=== PATIENT | female | born 1955 | race Caucasian/White ===

== ENCOUNTER 2017-02-17 16:13 | Emergency (ER) | payer OTHER ==
[~2017-02-17] VITALS: Wt 75.5 kg
[~2017-02-17 16:13] MED LIST: ALPR0.254 PO; ATOR40TA68 PO; CHOL100062 PO; DOCU100C26 PO; HYDR-3011 PO; INVOKAMET PO; LEVO150T67 PO; LINA290C PO; LORA10CA PO; MECL12.5 PO; SERT50TA PO; ZOLP10TA PO
[2017-02-17] MEDS ORDERED: SODIUM CHLORIDE 0.9% 1L BAG IV* STA (18:54)
[2017-02-17] MEDS ORDERED: ACETAMINOPHEN 325 MG TAB PO ONE (19:00)
--- NOTE | 2017-02-17 19:05 | ERA ---
ER Documentation Chief Complaint Date/Time DATE: 02/17/17 TIME: 18:58 Chief Complaint HEADACHE, NAUSEA, FEVER X 4 DAYS HPI This is a 62-year-old female with a past medical history of hypothyroidism, hyperlipidemia, constipation, sleep disturbance, depression, anxiety who is presenting with a productive cough of yellow sputum, mild shortness of breath, fatigue, fever, chills, nausea and a headache for 4 days. The patient is felt more run down recently. She is also felt mildly lightheaded, but this comes and goes. She has never felt like she is truly going to pass out. She has never been at risk of falling. She denies neck stiffness, but she does endorse myalgias generally. She denies chest pain but does indicate that she has some chest discomfort with coughing. She denies abdominal pain. She has had no changes to bowel movements urination. She has had no episodes of confusion. She has had no focal deficits. ROS All systems reviewed and are negative except as per history of present illness. Medications Home Meds Active Scripts Levofloxacin* (Levaquin*) 750 Mg Tablet, 750 MG PO DAILY for 7 Days, TAB Prov:GROVER CM MD 02/17/17 Reported Medications Ibuprofen* (Ibuprofen*) 600 Mg Tablet, 600 MG PO QID Y for PAIN, TAB 02/17/17 Pentoxifylline* (Pentoxifylline*) 400 Mg Tablet.sa, 400 MG PO DAILY, TAB 02/17/17 Meloxicam* (Meloxicam*) 7.5 Mg Tablet, 7.5 MG PO DAILY, #30 TAB 02/17/17 Levothyroxine Sodium* (Levothyroxine Sodium*) 175 Mcg Tablet, 175 MCG PO BEFORE BREAKFAST, #30 TAB 02/17/17 Canagliflozin/Metformin HCl (Invokamet 150-1,000 mg Tablet) 1 Each Tablet, 1 EACH PO WITH BREAKFAST DINNE, #60 TAB 02/17/17 Atorvastatin* (Atorvastatin*) 40 Mg Tablet, 40 MG PO HS, TAB 10/22/14 Discontinued Reported Medications [Invokamet] 150-1000MG No Conflict Check, 1 PO BID 02/18/15 Zolpidem Tartrate* (Ambien*) 10 Mg Tablet, 10 MG PO HS Y for INSOMNIA, TAB 02/18/15 Docusate Sodium* (Doc-Q-Lace*) 100 Mg Capsule, 100 MG PO Q8 Y for CONSTIPATION, CAP 02/18/15 Levothyroxine Sodium* (Levothyroxine Sodium*) 150 Mcg Tablet, 150 MCG PO AC BREAKFAST, TAB 02/18/15 Hydroxyzine Hcl* (Hydroxyzine Hcl*) 25 Mg Tablet, 25 MG PO DAILY Y for ITCHING, TAB 02/18/15 Alprazolam* (Alprazolam*) 0.25 Mg Tablet, 0.25 MG PO Q8 for ANXIETY for 7 Days, TAB 02/18/15 Sertraline Hcl* (Zoloft*) 50 Mg Tablet, 50 MG PO HS, TAB 01/19/15 Cholecalciferol* (Vitamin D3*) 1,000 Unit Tablet, 3000 UNIT PO DAILY, TAB 10/22/14 Loratadine* (Claritin*) 10 Mg Capsule, 10 MG PO QHS, CAP 10/22/14 Linaclotide (LINZESS) 290 Mcg Capsule, 290 MCG PO 07/03/14 Discontinued Scripts Levothyroxine Sodium* (Levothyroxine Sodium*) 150 Mcg Tablet, 150 MCG PO AC BREAKFAST, #90 TAB Prov:PETER NIELSEN MD 02/23/15 Meclizine Hcl* (Meclizine Hcl*) 12.5 Mg Tab, 12.5 MG PO TID for 10 Days, BOT Prov:NEVAEH YUSUF MD 02/20/15 Allergies Allergies: Coded Allergies: No Known Allergy (Unverified , 02/17/17) PMhx/Soc History of Surgery: Yes (Thyroid) Anesthesia Reaction: No Hx Neurological Disorder: No Hx Respiratory Disorders: No Hx Cardiac Disorders: Yes (chol) Hx Psychiatric Problems: No Hx Miscellaneous Medical Probl: Yes (DM) Hx Alcohol Use: No Hx Substance Use: No Hx Tobacco Use: No Smoking Status: Never smoker FmHx Family History: No diabetes Physical Exam Vitals Vital Signs Date Time Temp Pulse Resp B/P Pulse Ox O2 Delivery O2 Flow Rate FiO2 02/17/17 21:00 98.4 87 16 113/58 97 Room Air 02/17/17 18:55 99.1 90 20 95/41 96 Room Air 02/17/17 16:21 100.9 104 18 127/68 99 Physical Exam Const: NAD, Well developed, Well nourished Head: Atraumatic Eyes: Normal Conjunctiva ENT: Normal External Ears, Nose and Mouth. Neck: Full range of motion..~ No meningismus. Resp: Coarse breath sounds, dullness on the left. Cardio: Regular rhythm, no murmurs. tachycardia Abd: Soft, non tender, non distended. Normal bowel sounds Skin: No petechiae or rashes Back: No midline or flank tenderness Ext: No cyanosis, or edema Neur: Awake and alert, Normal sensation, Normal strength Psych: Normal Mood and Affect Result Diagram: 02/17/17191402/17/171914 Results 24 hrs Laboratory Tests Test 02/17/17 19:15 02/17/17 20:51 White Blood Count 12.010^3/ul Red Blood Count 4.7010^6/ul Hemoglobin 13.2g/dl Hematocrit 40.8% Mean Corpuscular Volume 86.8fl Mean Corpuscular Hemoglobin 28.1pg Mean Corpuscular Hemoglobin Concent 32.4g/dl Red Cell Distribution Width 13.7% Platelet Count 91154^3/UL Mean Platelet Volume 11.4fl Neutrophils % 81.3% Lymphocytes % 9.4% Monocytes % 8.4% Eosinophils % 0.1% Basophils % 0.4% Nucleated Red Blood Cells % 0.0/100WBC Neutrophils # 9.710^3/ul Lymphocytes # 1.110^3/ul Monocytes # 1.010^3/ul Eosinophils # 0.010^3/ul Basophils # 0.110^3/ul Nucleated Red Blood Cells # 0.010^3/ul Prothrombin Time 14.3Sec Prothrombin Time Ratio 1.1 INR International Normalized Ratio 1.11 Activated Partial Thromboplast Time 30.5Sec Urine Color YELLOW Urine Clarity SLIGHTLY CLOUDY Urine pH 5.0 Urine Specific [place] 1.032 Urine Ketones 1+mg/dL Urine Nitrite NEGATIVEmg/dL Urine Bilirubin NEGATIVEmg/dL Urine Urobilinogen NEGATIVEmg/dL Urine Leukocyte Esterase NEGATIVELeu/ul Urine Microscopic RBC 1/HPF Urine Microscopic WBC 3/HPF Urine Mucus MODERATE/HPF Urine Hemoglobin NEGATIVEmg/dL Urine Glucose 3+mg/dL Urine Total Protein NEGATIVEmg/dl Sodium Level 137mmol/L Potassium Level 4.1mmol/L Chloride Level 102mmol/L Carbon Dioxide Level 22mmol/L Anion Gap 17 Blood Urea Nitrogen 20mg/dl Creatinine 0.81mg/dl Glucose Level 105mg/dl Lactic Acid Level 1.1mmol/L 0.8mmol/L Calcium Level 9.1mg/dl Total Bilirubin 0.4mg/dl Direct Bilirubin 0.00mg/dl Indirect Bilirubin 0.4mg/dl Aspartate Amino Transf (AST/SGOT) 29IU/L Alanine Aminotransferase (ALT/SGPT) 36IU/L Alkaline Phosphatase 109IU/L Troponin I < 0.012ng/ml Total Protein 8.5g/dl Albumin 4.5g/dl Globulin 4.00g/dl Albumin/Globulin Ratio 1.12 Current Medications Medications (Trade) Dose Ordered Sig/Manoj Route PRN Reason Start Time Stop Time Status Last Admin Dose Admin Sodium Chloride (NS) 2,340 ml BOLUS OVER 2 HOURS STAT IV* 02/17/17 18:54 02/17/17 18:56 DC 02/17/17 19:21 Acetaminophen (Tylenol Tab) 650 mg ONCE ONCE PO 02/17/17 19:00 02/17/17 19:01 DC 02/17/17 19:22 Levofloxacin (Levaquin) 750 mg ONCE ONCE PO 02/17/17 21:30 02/17/17 21:31 DC 02/17/17 21:46 Procedures/MDM MDM Patient's presentation warrants further investigation. The patient has symptoms consistent with an infectious etiology, such as pneumonia. A full infectious workup will be performed. The patient is febrile and tachycardic, but her blood pressure is stable. Lactic acid will be sent off and the patient will receive 30 cc/kg of IV fluids for resuscitative purposes. However, my suspicion for sepsis is low. LABS The patient's blood work was obtained and reviewed. The patient seemed shows leukocytosis with left shift. The patient is febrile, and I do suspect an infectious etiology. The patient is not anemic today. The patient's platelet count is unremarkable. The patient's CMP shows no signs of metabolic or electrolyte abnormality. The patient has normal renal and hepatic function testing. The patient's lactic acid was within normal limits 2. EKG EKG read by me: Rate/Rhythm: Regular rate and rhythm at a rate of 89 Intervals: Normal [place]: Normal Impression: No evidence of ischemia or arrhythmia IMAGING CXR IMPRESSION: Mild left basilar atelectasis or pneumonia. Atherosclerosis. Otherwise normal chest radiograph. Electronically viewed and signed by .Michael Ocasio MD, on 02/17/2017 20:22 TREATMENT/DISPOSITION Given the findings on the chest x-ray, I am concerned about pneumonia. The patient was initially febrile and tachycardic. However, after IV fluids and Tylenol, both of these vital signs resolved completely. The patient also felt much better. The patient will be given a dose of Levaquin in the emergency department. The patient's lactic acid was normal, and I do not suspect sepsis at this time. The patient will be sent home with a prescription for Levaquin. She will be given precautions with which to return to the emergency department. She needs follow-up with her doctor in 1-3 days for reevaluation. The patient stable for discharge. Departure Diagnosis: Primary Impression: Fever Qualified Code: R50.9 - Fever, unspecified fever cause Additional Impressions: Leukocytosis Qualified Code: D72.820 - Lymphocytosis Pneumonia Qualified Code: J18.9 - Pneumonia of left lung due to infectious organism, unspecified part of lung Condition: Stable GROVER CM MD Feb 17, 2017 19:05
[2017-02-17] MEDS ORDERED: CANA1TAB4 PO (19:25)
[2017-02-17] MEDS ORDERED: LEVO175T6 PO (19:26)
[2017-02-17] MEDS ORDERED: MELO-216 PO (19:26)
[2017-02-17] MEDS ORDERED: PENT400T2 PO (19:27)
[2017-02-17] MEDS ORDERED: IBUP-1542 PO (19:27)
[2017-02-17 19:28] LABS: BASOPHIL # 0.1 10^3/ul (0.0-0.1); BASOPHILS % 0.4 % (0.0-2.0); EOSINOPHILS % 0.1 % (0.0-7.0); HEMATOCRIT 40.8 % (37.0-47.0); HEMOGLOBIN 13.2 g/dl (12.0-16.0); LYMPHOCYTES # 1.1 10^3/ul (0.8-2.9); LYMPHOCYTES % 9.4 % (15.0-51.0); MEAN CORPUSCULAR HEMOGLOBIN 28.1 pg (29.0-33.0); MEAN CORPUSCULAR HGB CONC 32.4 g/dl (32.0-37.0); MEAN CORPUSCULAR VOLUME 86.8 fl (82.0-101.0); MEAN PLATELET VOLUME 11.4 fl (7.4-10.4); MONOCYTES % 8.4 % (0.0-11.0); NEUTROPHIL # 9.7 10^3/ul (1.6-7.5); NEUTROPHILS % 81.3 % (39.0-77.0); PLATELET COUNT 240 10^3/UL (140-415); RED CELL DISTRIBUTION WIDTH 13.7 % (11.5-14.5)
[2017-02-17 19:36] LABS: ADD UMIC NO; UR ASCORBIC ACID NEGATIVE (NEGATIVE); UR BILIRUBIN (Dip) NEGATIVE (NEGATIVE); UR BLOOD (Dip) NEGATIVE (NEGATIVE); UR CLARITY SLIGHTLY CLOUDY (CLEAR); UR COLOR YELLOW (YELLOW); UR GLUCOSE (Dip) 3+ mg/dL (NEGATIVE); UR KETONES (Dip) 1+ mg/dL (NEGATIVE); UR LEUKOCYTE ESTERASE (Dip) NEGATIVE Leu/ul (NEGATIVE); UR MUCUS MODERATE /HPF (NONE SEEN); UR NITRITE (Dip) NEGATIVE (NEGATIVE); UR RBC 1 /HPF (0-5); UR SPECIFIC GRAVITY (Dip) 1.032 (1.003-1.030); UR TOTAL PROTEIN (Dip) NEGATIVE (NEGATIVE); UR UROBILINOGEN (Dip) NEGATIVE (NEGATIVE)
[2017-02-17 19:46] LABS: INR 1.11; PROTIME 14.3 Sec (12.2-14.2); PT RATIO 1.1
[2017-02-17 19:47] LABS: PARTIAL THROMBOPLASTIN TIME 30.5 Sec (25.0-35.0)
[2017-02-17 20:02] LABS: ALANINE AMINOTRANSFERASE 36 IU/L (13-69); ALBUMIN 4.5 g/dl (3.3-4.9); ALBUMIN/GLOBULIN RATIO 1.12; ALKALINE PHOSPHATASE 109 IU/L (42-121); ANION GAP 17 (8-16); ASPARTATE AMINO TRANSFERASE 29 IU/L (15-46); BILIRUBIN,INDIRECT 0.4 mg/dl (0-1.1); BILIRUBIN,TOTAL 0.4 mg/dl (0.2-1.3); BLOOD UREA NITROGEN 20 mg/dl (7-20); CALCIUM 9.1 mg/dl (8.4-10.2); CARBON DIOXIDE 22 mmol/L (21-31); CHLORIDE 102 mmol/L (97-110); CREATININE 0.81 mg/dl (0.44-1.00); GLUCOSE 105 mg/dl (70-220); POTASSIUM 4.1 mmol/L (3.5-5.1); SODIUM 137 mmol/L (135-144); TOTAL PROTEIN 8.5 g/dl (6.1-8.1)
[2017-02-17 20:19] LABS: TROPONIN-I < 0.012 ng/ml (0.00-0.12)
--- NOTE | 2017-02-17 20:22 | RADRPT ---
PROCEDURE: XR Chest. CLINICAL INDICATION: Cough. Sepsis. TECHNIQUE: Single frontal view. COMPARISON: 02/18/2015. FINDINGS: There is mild left basilar air space disease consistent with atelectasis or pneumonia. The lungs are otherwise clear. The heart size is normal. There is calcification in the aorta consistent with atherosclerosis. There is no pleural effusion. There is no pneumothorax. IMPRESSION: 1. Mild left basilar atelectasis or pneumonia. 2. Atherosclerosis. 3. Otherwise normal chest radiograph. RPTAT: QQ .Michael Ocasio MD, MD Date Time Electronically viewed and signed by .Michael Ocasio MD, MD on 02/17/2017 20:22 .R/
[2017-02-17 21:00] VITALS: BP 113/58; PULSE 87; RESP 16; TEMP 98.4
[2017-02-17] MEDS ORDERED: LEVOFLOXACIN 750 MG TABLET PO ONE (21:30)
[2017-02-17] MEDS ORDERED: LEVO750T25 PO (21:30)
== END 2017-02-17 21:50 | disposition home or self-care (01) ==
LOC: E/R 16:13
DX: D72.820 Lymphocytosis (symptomatic) (principal); J18.9 Pneumonia, unspecified organism; E03.9 Hypothyroidism, unspecified; E11.9 Type 2 diabetes mellitus without complications; R07.9 Chest pain, unspecified; Z79.84 Long term (current) use of oral hypoglycemic drugs
CPT/HCPCS: 36415; 71010; 80053; 81001; 83605; 84484; 85025; 85610; 85730; 87040; 87086; J7030; Z7502; Z7610; 81003; 93005

== ENCOUNTER 2017-08-15 19:13 | Emergency (ER) | END 2017-08-16 02:50 | disposition home or self-care (01) ==

== ENCOUNTER 2017-11-05 08:33 | Emergency (ER) | END 2017-11-05 10:09 | disposition home or self-care (01) ==

== ENCOUNTER 2018-11-07 09:48 | Inpatient (IN) | payer OTHER ==
[2018-11-07] VITALS (26 sets, daily range): BP systolic 101–127; BP diastolic 53–73; PULSE 74–108; RESP 11–20; Ht 149.9 cm; Wt 77.3 kg
[~2018-11-07] VITALS: Ht 149.9 cm; Wt 77.3 kg
[~2018-11-07 09:48] MED LIST changes: -ALPR0.254 PO; +CEFAZOLIN 2 GM/50 ML (PMX) 50 ML IVPB SCH; -CHOL100062 PO; -DOCU100C26 PO; -HYDR-3011 PO; -INVOKAMET PO; +LACTATED RINGER'S 1,000 ML IV SCH; -LEVO150T67 PO; -LINA290C PO; -LORA10CA PO; -MECL12.5 PO; -SERT50TA PO; -ZOLP10TA PO
[2018-11-07] MEDS ORDERED: NABU-83 PO (10:52)
[2018-11-07] MEDS ORDERED: TIZA4CAP PO (10:52)
[2018-11-07] MEDS ORDERED: LEVO125T7 PO (10:52)
[2018-11-07] MEDS ORDERED: PROP10TA6 PO (10:52)
[2018-11-07] MEDS ORDERED: GABA100C14 PO (10:52)
[2018-11-07] MEDS ORDERED: PARO10TA76 PO (10:52)
[2018-11-07] MEDS ORDERED: HYDR25CA98 PO (10:52)
[2018-11-07] MEDS ORDERED: CITA20TA11 PO (10:52)
[2018-11-07] MEDS ORDERED: CANA1TAB4 PO (10:52)
[2018-11-07] MEDS ORDERED: POLYMYXIN/BACITRACIN 1L IRRIG ONE (11:36)
--- NOTE | 2018-11-07 12:03 | PREAC ---
Date/Time of Note Date/Time of Note DATE: 11/07/18 TIME: 12:00 Anesthesia Eval and Record Evaluation Time Pre-Procedure Interview DATE: 11/07/18 TIME: 12:00 Age 63 Sex female NPO: 8 hrs Preoperative diagnosis Cervical Spine Stenosis Planned procedure Anterior Cervical C5-6 Disectomy and Fusion Past Medical History Past Medical History: Includes Endo: Diabetes, Hypothyroid Surgery & Anesthesia Issues No known issue Meds Anticoagulation: No Beta Angeline within 24 hr: Yes Reported Medications Tizanidine Hcl* (Zanaflex*) 4 Mg Capsule, 4 MG PO Q6H PRN for SPASTICITY, CAP 11/07/18 Propranolol Hcl* (Propranolol Hcl*) 10 Mg Tablet, 10 MG PO BID, TAB 11/07/18 Paroxetine Hcl* (Paroxetine*) 10 Mg Tablet, 10 MG PO DAILY, TAB 11/07/18 Nabumetone* (Nabumetone*) 750 Mg Tablet, 750 MG PO DAILY, TAB 11/07/18 Levothyroxine Sodium* (Levothyroxine Sodium*) 125 Mcg Tablet, 125 MCG PO BEFORE BREAKFAST, #30 TAB 11/07/18 Canagliflozin/Metformin HCl (Invokamet 150-1,000 mg Tablet) 1 Each Tablet, 1 TAB PO WITH BREAKFAST DINNE, #60 TAB 11/07/18 Hydroxyzine Pamoate* (Hydroxyzine Pamoate*) 25 Mg Capsule, 25 MG PO BID PRN for ALLERGIC REACTION, #30 CAP 11/07/18 Gabapentin* (Gabapentin*) 100 Mg Capsule, 100 MG PO TID, #90 CAP 11/07/18 Citalopram Hydrobromide* (Celexa*) 20 Mg Tablet, 30 MG PO DAILY, #30 TAB 11/07/18 Atorvastatin* (Atorvastatin*) 40 Mg Tablet, 40 MG PO HS, TAB 10/22/14 Discontinued Reported Medications Ibuprofen* (Ibuprofen*) 600 Mg Tablet, 600 MG PO QID PRN for PAIN, TAB 02/17/17 Pentoxifylline* (Pentoxifylline*) 400 Mg Tablet.sa, 400 MG PO DAILY, TAB 02/17/17 Meloxicam* (Meloxicam*) 7.5 Mg Tablet, 7.5 MG PO DAILY, #30 TAB 02/17/17 Levothyroxine Sodium* (Levothyroxine Sodium*) 175 Mcg Tablet, 175 MCG PO BEFORE BREAKFAST, #30 TAB 02/17/17 Canagliflozin/Metformin HCl (Invokamet 150-1,000 mg Tablet) 1 Each Tablet, 1 EACH PO WITH BREAKFAST DINNE, #60 TAB 02/17/17 Discontinued Scripts Ibuprofen* (Motrin*) 600 Mg Tab, 600 MG PO Q6, #30 TAB Prov:LATRICE ADAIR PA-C 11/05/17 Ondansetron (Ondansetron Odt) 4 Mg Tab.rapdis, 4 MG PO Q6H PRN for NAUSEA AND/OR VOMITING, #10 TAB Prov:XIOMARA GUTIERREZ S. 08/16/17 Tramadol HCl (Tramadol HCl) 50 Mg Tablet, 50 MG PO Q4 PRN for PAIN, #20 TAB Prov:XIOMARA GUTIERREZ S. 08/16/17 Ciprofloxacin Hcl* (Ciprofloxacin Hcl*) 500 Mg Tablet, 500 MG PO BID for 7 Days, TAB Prov:XIOMARA GUTIERREZ S. 08/16/17 Levofloxacin* (Levaquin*) 750 Mg Tablet, 750 MG PO DAILY for 7 Days, TAB Prov:GROVER CM MD 02/17/17 Current Medications Lactated Ringer's 1,000 ml @ 25 mls/hr Q24H IV ; Start 11/07/18 at 06:00; Stop 11/07/18 at 17:00 Cefazolin Sodium/ Dextrose 50 ml @ 100 mls/hr PRE-OP IVPB ; Start 11/07/18 at 06:00; Stop 11/07/18 at 17:00 Meds reviewed: Yes Allergies Coded Allergies: No Known Allergy (Unverified , 11/07/18) Allergies Reviewed: Yes Labs/Studies Labs Reviewed: Reviewed by anesthesiologist Blood Bank Test 11/07/18 10:34 Antibody Screen NEGATIVE Blood Type B POSITIVE test: N/A Studies: ECG (n/a), CXR (n/a) Pre-procedure Exam Last vitals Vital Signs Date Temp Pulse Resp B/P (MAP) Pulse Ox O2 O2 Flow FiO2 Time Delivery Rate 11/07/18 97.4 74 16 118/73 97 Room Air 11:11 (88) Airway: Adequate mouth opening, Adequate thyromental dist Mallampati: Mallampati II Teeth: Normal Lung: Normal Heart: Normal ASA Physical Status ASA physical status: 2 Emergency: None Planned Anesthetic General/MAC: ETT, A Line Planned Pain Management Parenteral pain med Pre-operative Attestations Prior to commencing anesthesia and surgery, the patient was re-evaluated, there was verification of: *The patient's identity *The results of appropriate recent lab work and preoperative vital signs *The above evaluation not changing prior to induction *Anesthetic plan, risk benefits, alternative and complications discussed with patient/family; questions answered; patient/family understands, accepts and wishes to proceed. JULIO CÉSAR STAUFFER MD Nov 07, 2018 12:03
[2018-11-07] MEDS ORDERED: THROMBIN 5000 UNIT VIAL ONE (12:05)
[2018-11-07] MEDS ORDERED: FENTAnyl 50 MCG/ML VIAL ONE (12:07)
[2018-11-07] MEDS ORDERED: ROCURONIUM 50 MG INJ ONE (12:07)
[2018-11-07] MEDS ORDERED: CEFAZOLIN 1 GM INJ ONE (12:07)
[2018-11-07] MEDS ORDERED: PROPOFOL 20 ML ONE (12:07)
[2018-11-07] MEDS ORDERED: MIDAZOLAM 1 MG/ML 2 ML INJ ONE (12:07)
--- NOTE | 2018-11-07 12:20 | HPN ---
Date/Time of Note Date/Time of Note DATE: 11/07/18 TIME: 12:20 Interval H&P Admission Note Pt. seen H&P reviewed: No system changes ELENA BRADLEY MD Nov 07, 2018 12:20
[2018-11-07] MEDS ORDERED: LIDOCAINE 1%/EPI 30 ML INJ ONE (12:30)
--- NOTE | 2018-11-07 12:44 | PREOPHP ---
DATE OF ADMISSION: 11/07/2018 HISTORY OF PRESENT ILLNESS: The patient is a 63-year-old right-handed female with a history of chronic low back pain as well as left upper extremity pain, numbness and tingling. The patient was found to have hyperreflexia on examination and has had progressive neck pain. MRI showed degenerative disk disease and stenosis, foraminal stenosis on the left at C5-C6. The patient denies any fevers, chills, or weight loss. Denies any bowel or bladder incontinence. PAST MEDICAL HISTORY: Significant for hypothyroidism, high blood pressure, chronic low back pain, and cervical myelopathy. PAST SURGICAL HISTORY: Significant for appendicitis. FAMILY HISTORY: No reported history of inherited bleeding disorder. SOCIAL HISTORY: The patient is nonsmoker, nondrinker. ALLERGIES: NO KNOWN DRUG ALLERGIES. REVIEW OF SYSTEMS: 12- point review: pertinent positive and negatives in HPI and below: Constitution: Denies fever or chills. Hematologic: Denies easy bruising or bleeding. MEDICATIONS: Include: 1. Atorvastatin 40 mg daily. 2. Celexa 1-1/2 tab daily. 3. Gabapentin 100 mg t.i.d. 4. Hydroxyzine 25 mg. 5. Levothyroxine 150 mcg daily. 6. Paroxetine 10 mg daily. 7. Propranolol 10 mg b.i.d. 8. Zanaflex 4 mg q.i.d. PHYSICAL EXAMINATION: VITAL SIGNS: Temperature 97.4, pulse 74, respirations 16, blood pressure 118/73, saturating 97% on room air. GENERAL: The patient is an obese late middle-aged female lying in the hospital bed in no acute distress. HEAD AND NECK: Normocephalic, atraumatic. She has a mild left [place]urling sign. Her neck is supple. CARDIAC: Regular rate and rhythm. LUNGS: Clear to auscultation. ABDOMEN: Nontender, nondistended, soft. EXTREMITIES: No clubbing, cyanosis, or edema. NEUROLOGIC: Patient is awake, alert, and oriented x3, fluent speech, follows commands readily appropriately. Cranial nerves intact. MOTOR: 5/5 bilateral upper extremities. The patient's deep tendon reflexes were 3+ in her biceps, brachioradialis and triceps and plant. Patellar reflexes were 2+. She does not have a Aki sign or Babinski. Sensation grossly intact. ASSESSMENT AND PLAN: A 64-year-old female with cervical stenosis and myelopathy, lumbar stenosis, lumbago and spondylolisthesis. I went over the patient's signs, symptoms, physical examination, radiographic findings with her in detail in the clinic. I discussed risks, benefits, alternatives of surgical intervention with the patient. The patient elected to proceed with surgery for C5-C6 anterior cervical diskectomy and fusion with a synthetic graft and plate. The patient states that she has declined receiving blood products. I discussed the possibility of should the patient not be able to receive blood products, though I believe the likelihood of transfusion is extremely low for a single level procedure of this nature. The patient expressed understanding and acceptance of this risk of declining blood products. The patient is to be taken to OR for surgery now. Dictated By: ELENA BRADLEY MD, LG/JOHN Conf#: [id number] DID#: [id number] MTDD
[2018-11-07] MEDS ORDERED: ONDANSETRON 4 MG INJ ONE (13:00)
[2018-11-07] MEDS ORDERED: DEXAMETHASONE 4 MG/ML 5 ML INJ ONE (13:00)
[2018-11-07] MEDS ORDERED: METOCLOPRAMIDE 10 MG INJ ONE (13:00)
[2018-11-07] MEDS ORDERED: GELATIN SIZE 100 SPONGE TOP ONE (13:39)
[2018-11-07] MEDS ORDERED: SUGAMMADEX SODIUM 200 MG/2 ML VIAL IV ONE (14:56)
[2018-11-07] MEDS ORDERED: MEPERIDINE 25 MG INJ IV PRN (15:00)
[2018-11-07] MEDS ORDERED: DIPHENHYDRAMINE 50 MG INJ IV PRN (15:00)
[2018-11-07] MEDS ORDERED: FENTAnyl 50 MCG/ML VIAL IV PRN ×3 (15:00)
[2018-11-07] MEDS ORDERED: LABETALOL HCL 20MG INJ IV PRN (15:00)
[2018-11-07] MEDS ORDERED: HYDROmorphONE 1 MG/5 ML IV SYRINGE IV PRN ×3 (15:00)
[2018-11-07] MEDS ORDERED: METOCLOPRAMIDE 10 MG INJ IV PRN (15:00)
[2018-11-07] MEDS ORDERED: ONDANSETRON 4 MG INJ IV PRN ×2 (15:00→15:30)
[2018-11-07] MEDS ORDERED: EPHEDrine 25 MG/5 ML SYG IV PRN (15:00)
[2018-11-07] MEDS ORDERED: OXYCODONE/ACETAMINOPHEN (5/325) TAB PO PRN (15:00)
--- NOTE | 2018-11-07 15:15 | PAC ---
Date/Time of Note Date/Time of Note DATE: 11/07/18 TIME: 15:14 Post-Anesthesia Notes Post-Anesthesia Note Last documented vital signs Vital Signs Date Temp Pulse Resp B/P (MAP) Pulse Ox O2 O2 Flow FiO2 Time Delivery Rate 11/07/18 97.4 74 16 118/73 97 Room Air 15:15 (88) Activity: WNL Respiratory function: WNL Cardiovascular function: WNL Mental status: Baseline Pain reasonably controlled: Yes Hydration appropriate: Yes Nausea/Vomiting absent: Yes JULIO CÉSAR STAUFFER MD Nov 07, 2018 15:15
--- NOTE | 2018-11-07 15:28 | OPR ---
Date/Time of Note Date/Time of Note DATE: 11/07/18 TIME: 15:25 Operative Report Preoperative Diagnosis 1. cervical stenosis with myelopathy 2. cervical spondylosis and degenerative disc disease 3. cervical radiculopathy 4. Chronic neck pain. Postoperative Diagnosis 1. cervical stenosis with myelopathy 2. cervical spondylosis and degenerative disc disease 3. cervical radiculopathy 4. Chronic neck pain. Operation/Procedure Performed 1. C5-6 anterior cervical discectomy and fusion 2. placement of mechanical interbody device, C5-6 interspace. 3. fixation of anterior cervical plate C5-6. 4. use of microscope for intraoperative microdissection. Surgeon see signature line Chief Design Engineer none Anesthesia Type: general Anesthesiologist: JULIO CÉSAR STAUFFER MD Estimated Blood Loss: 0 - 10 ml's Transfusion none Specimen none Grafts/Implants none Tubes/Drains none Complications none Pt Condition Post Procedure: stable Disposition: PACU Procedure Description see dictation ELENA BRADLEY MD Nov 07, 2018 15:28
[2018-11-07] MEDS ORDERED: ZOLPIDEM 5 MG TAB PO PRN (15:30)
[2018-11-07] MEDS ORDERED: DIPHENHYDRAMINE 50 MG CAP PO PRN (15:30)
[2018-11-07] MEDS ORDERED: morphine 1 MG/ML 30 ML (PCA) IV SCH (15:30)
[2018-11-07] MEDS ORDERED: CEPASTAT LOZENGE MT PRN (15:30)
[2018-11-07] MEDS ORDERED: BETHANECHOL 25 MG TAB PO PRN (15:30)
[2018-11-07] MEDS ORDERED: HYDROCODONE/APAP (5/325) TAB PO PRN (15:30)
[2018-11-07] MEDS ORDERED: NALOXONE (0.4 MG/ML) INJ IV PRN (15:30)
[2018-11-07] MEDS ORDERED: DIAZEPAM 5 MG TAB PO PRN (15:30)
[2018-11-07] MEDS ORDERED: AL HYDROX/MG HYDROX/SIMETH 30 ML CUP PO PRN (15:30)
[2018-11-07] MEDS ORDERED: ACETAMINOPHEN 325 MG TAB PO PRN (15:30)
[2018-11-07] MEDS ORDERED: NACL 0.9% 3 ML SYG IV SCH (15:30)
[2018-11-07] MEDS: morphine 1 MG/ML 30 ML (PCA) IV SCH (16:46)
[2018-11-07] MEDS: CEFAZOLIN 1 GM/50 ML (PMX) 50 ML IVPB SCH ×2 (18:06→23:41)
--- NOTE | 2018-11-07 18:23 | OPR ---
DATE OF OPERATION: 11/07/2018 PREOPERATIVE DIAGNOSES: 1. Cervical stenosis with myelopathy. 2. Cervical radiculopathy. 3. Chronic neck pain 4. Cervical degenerative disk disease. POSTOPERATIVE DIAGNOSES: 1. Cervical stenosis with myelopathy. 2. Cervical radiculopathy. 3. Chronic neck pain 4. Cervical degenerative disk disease. PROCEDURES: 1. C5-C6 anterior cervical diskectomy and fusion. 2. Placement of intervertebral mechanical device. 3. Fixation of anterior cervical place, C5-C6. 4. Use of microscope for intraoperative microdissection. SURGEON: Elena Blanc MD BOOK OR SCRIPT EDITOR: None. ANESTHESIOLOGIST: Jose F Rogers MD FINDINGS: Degenerative disk disease and stenosis. SPECIMENS COLLECTED: None. DRAINS PLACED: None. ESTIMATED BLOOD LOSS: 10 mL. COMPLICATIONS: None. DISPOSITION: Recovery. INDICATIONS: The patient is a 63-year-old female with cervical myelopathy and left greater than righ t radiculopathy. The patient has cervical stenosis due to degenerative disease at C5-C6. The risks, benefits, and alternatives of surgical intervention were discussed with the patient who elected for surgery. DESCRIPTION OF PROCEDURE: The patient was brought to the OR. She was sedated, intubated, and anesth esia was successfully induced. Electrophysiologic monitoring was performed and baseline potentials e stablished. The patient was placed in a supine position on the operative table. The neck was slight ly extended. The patient has had a prior thyroidectomy and localization preoperatively. Fluoroscopy showed optimal trajectory for the operation through the prior incision. Sequential compression javier ken were placed. A Moore catheter was placed. Perioperative antibiotics were given. Dr. Rogers al arnel placed an arterial line. The patient was sterilely prepped and draped. After surgical time-out, the procedure commenced. A 15-blade knife was used to make an incision from the midline laterally to the left. ____ Ray- type incision from the midline extending to the left approximately 1 inch. Sharp dissection through the subcutaneous tissue was performed with Metzenbaum scissors and a plane of the fascial tissue was dissected with digital blunt dissection and spreading the Metzenbaum to the prevertebral space. A Ki tner was used to remove this fascia and revealed the longus colli muscle and the anterior longitudina l ligament. A spinal needle was placed. This revealed the disk space corresponding to C5-C6 disk sp teresa. A Bovie electrocautery was used to undermine the longus colli muscles and self-retaining retrac tors were placed. The microscope was then brought in to perform the diskectomy. An 11-blade knife w as used to incise the annulus and the nucleus was removed. Curettes were used to remove the cartilag inous endplate and to remove further disk back to the posterior longitudinal ligament, which was calc ified. A high-speed drill was used to remove some anterior osteophytes and the posterior osteophytes back through the calcified ligament to further longitudinal ligament. [place] rongeurs were then u sed to remove the longitudinal ligament to reveal the epidural space. A high-speed drill and Kerriso n rongeurs were used to remove more bone laterally to perform a foraminotomy. Once a complete diskec maria d had been completed and the cartilaginous endplates removed, a 6 mm trial graft was tapped into p lace and under fluoroscopy showed good depth and alignment. Hence, a PEEK cage filled with DBM was t amponaded into the disk space. [place] pins had been placed to the disk space prior to the diskectomy and the retraction was released after placement of the graft. The [place] pins were removed. A 14 m m anterior cervical plate was then secured to the vertebral bodies of C5 and C6 with 2 screws on and both bones. The locking mechanism was engaged on all screws and final x-rays were performed. The re tractor was removed and the wound was copiously irrigated with bacitracin irrigation and inspected fo r any evidence of bleeding, which there was none. The esophagus and carotid artery were inspected a nd there was no evidence of any violation or injury. Therefore, the incision was then closed with 3- 0 interrupted Vicryl sutures in the platysma and a running 4-0 Monocryl suture. Dermabond was placed . The incision was allowed to dry and a sterile dressing applied. The patient was extubated, taken off the table and taken to recovery after being placed in a hard cervical collar. Sponge, needle and cottonoid count was reported correct at the end the case as well as electrophysiologic monitoring wh ich remains stable. Dictated By: ELENA BLANC MD, LG/JOHN Conf#: [id number] DID#: [id number]
[2018-11-07] MEDS: HYDROCODONE/APAP (5/325) TAB PO PRN (19:18)
[2018-11-07] MEDS ORDERED: TIZANIDINE 4 MG TAB PO PRN (21:30)
[2018-11-07] MEDS ORDERED: hydrOXYzine PAMOATE 25 MG CAP PO PRN (21:30)
[2018-11-08] VITALS (13 sets, daily range): BP systolic 87–131; BP diastolic 52–69; PULSE 56–83; RESP 18–20
[2018-11-08] MEDS ORDERED: EPHEDrine 25 MG/5 ML SYG IV ONE (00:40)
[2018-11-08] MEDS ORDERED: SUCCINYLCHOLINE CHLORIDE 100 MG/5 ML SYG IV ONE (00:40)
[2018-11-08] MEDS: morphine 1 MG/ML 30 ML (PCA) IV SCH (03:20)
[2018-11-08] MEDS: LEVOTHYROXINE 125 MCG TAB PO SCH (06:31)
[2018-11-08] MEDS: CEFAZOLIN 1 GM/50 ML (PMX) 50 ML IVPB SCH ×2 (06:31→12:27)
[2018-11-08] MEDS ORDERED: METFORMIN HCL PO SCH (07:55)
[2018-11-08] MEDS ORDERED: [UNRECOGNIZED DRUG - OTHER] PO SCH (07:55)
[2018-11-08] MEDS ORDERED: CANAGLIFLOZIN PO SCH (07:55)
[2018-11-08] MEDS ORDERED: morphine 2 MG INJ IV PRN (08:00)
--- NOTE | 2018-11-08 08:19 | PN ---
Date/Time of Note Date/Time of Note DATE: 11/08/18 TIME: 08:15 Assessment/Plan Lines/Catheters IV Catheter Type (from Nrs): Peripheral IV Assessment/Plan Chief Complaint/Hosp Course POD # 1 s/p C5-6 ACDF. Doing well. D/c BREAD ROOM HAND. Ambulate. PT/OT. advance diet. Home later today if continues to do well. Discussed D/C instruction and precautions with patient and her daughter in detail. Subjective 24 Hr Interval Summary Patient anxious but overall doing well. Reports that her UE numbness and radiating pain have improved. Denies weakness. Reports some odynophagia but explained this may be expected. 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 ELENA BRADLEY MD Nov 08, 2018 08:19
[2018-11-08] MEDS ORDERED: DEXAMETHASONE 4 MG/ML 1 ML INJ IV ONE (08:30)
[2018-11-08] MEDS: DOCUSATE SODIUM 100 MG CAP PO SCH ×2 (08:57→22:02)
[2018-11-08] MEDS: GABAPENTIN 100 MG CAP PO SCH ×3 (08:58→22:02)
[2018-11-08] MEDS: PAROXETINE 10 MG TAB PO SCH (08:58)
[2018-11-08] MEDS: CITALOPRAM 20 MG TAB PO SCH (08:58)
[2018-11-08] MEDS: PROPRANOLOL 10 MG TAB PO SCH ×2 (09:00→22:01)
[2018-11-08] MEDS ORDERED: NABUMETONE 750 MG TAB PO SCH (09:00)
[2018-11-08] MEDS: NABUMETONE 500 MG TAB PO SCH (10:48)
[2018-11-08] MEDS: HYDROCODONE/APAP (5/325) TAB PO PRN ×2 (12:28→17:24)
--- NOTE | 2018-11-08 14:41 | QN ---
Documentation Comment pt seen and TOI Luna MD Nov 08, 2018 14:41
[2018-11-08] MEDS ORDERED: GLUCOSE GEL 15 GRAM TUBE BUCCAL PRN (15:00)
[2018-11-08] MEDS ORDERED: GLUCAGON 1 MG INJ IM PRN (15:00)
[2018-11-08] MEDS ORDERED: GLUCOSE GEL 15 GRAM TUBE PO PRN ×2 (15:00)
[2018-11-08] MEDS ORDERED: DEXTROSE 50% 50 ML SYRINGE IV PRN ×2 (15:00)
--- NOTE | 2018-11-08 15:34 | CONS ---
DATE OF ADMISSION: 11/08/2018 DATE OF CONSULTATION: TYPE OF CONSULTATION: Internal medicine on a postop patient. HISTORY OF PRESENTING ILLNESS: This is a 63-year-old female with a past medical history of diabetes, hypertension, hypothyroidism, hyperlipidemia with a history of cervical stenosis and myelopathy and chronic neck pain and cervical degenerative disk disease, was admitted electively by Dr. Bradley for C5 to C6 anterior cervical diskectomy and fusion. The patient had a procedure performed on 9, had placement of intervertebral mechanical device, fixation of anterior cervical plate. Currently , the patient was on PRODUCTION EDITOR pump, had some odynophagia. Denied any neck pain, any tingling, numbness. Currently denies any chest pain, any shortness of breath, any abdominal pain, nausea, vomiting, diarr hea. PAST MEDICAL HISTORY: 1. Diabetes. 2. Hypertension. 3. Hyperlipidemia. 4. Hypothyroidism. 5. Depression. ALLERGIES: NONE. PAST SURGICAL HISTORY: The patient has: 1. Thyroid surgery. 2. Some foot surgery. 3. Cervical surgery. SOCIAL HISTORY: Denies any history of smoking, alcohol or any drug use. Currently lives at home wit h the family. MEDICATIONS TAKING AT HOME: 1. Zanaflex 4 mg p.o. q.6 p.r.n. spasticity. 2. Atorvastatin 40 mg p.o. at bedtime. 3. Propranolol 10 mg p.o. b.i.d. 4. Celexa 30 mg p.o. daily. 5. Gabapentin 100 t.i.d. 6. Hydroxyzine. 7. Nabumetone. 8. Paroxetine. 9. Metformin/canagliflozin. 10. Levothyroxine 125. The patient has a neck collar in place, says that upper extremity numbness and radiation has improved , had some odynophagia. The patient has postop pain. PHYSICAL EXAMINATION: VITAL SIGNS: Currently, blood pressure 107/56, afebrile, heart rate 61, respirations 18. GENERAL: The patient is awake, alert, oriented, has a neck collar in place. HEART: Regular rate, rhythm. LUNGS: Clear to auscultate bilaterally. ABDOMEN: Soft, nontender, nondistended, positive normoactive bowel sounds. EXTREMITIES: No clubbing, cyanosis or edema. LABORATORY DATA: Glucose of 120. ASSESSMENT AND PLAN: This is a 63-year-old female with: 1. Status post cervical stenosis with myelopathy with C5 to C6 anterior cervical diskectomy and fusi on. 2. Diabetes. 3. Hypertension. 4. Hyperlipidemia. 5. Hypothyroidism. 6. Depression. 7. Hyperlipidemia. PLAN: At this period of time, the patient is admitted to telemetry. The patient has been followed b linette Bradley. PRODUCTION EDITOR pump has been stopped. The patient is currently on IV morphine and [place]. We wi ll continue the patient on home medications, fingersticks checks, insulin sliding scale. We will fol low up with physical therapy recommendations. Rest of the treatment will depend on the patient's hos pitalization course. Dictated By: TOI ESTRELLA RB/JOHN Conf#: [id number] DID#: [id number] CC: NEVAEH YUSUF MD; ELENA BRADLEY MD;*End*
[2018-11-08] MEDS: INSULIN ASPART [NOVOLOG] 3 ML PEN SC SCH ×2 (17:25→21:00)
[2018-11-08] MEDS ORDERED: ATORVASTATIN 40 MG TAB PO SCH (21:00)
[2018-11-09] VITALS: PULSE 61
[2018-11-09] MEDS ORDERED: ACCU-CHEK XX SCH (02:00)
[2018-11-09 04:00] VITALS: BP 107/58; PULSE 59; PULSE 62; RESP 18
[2018-11-09] MEDS: LEVOTHYROXINE 125 MCG TAB PO SCH (06:49)
[2018-11-09 07:13] VITALS: BP 102/57; PULSE 59; RESP 18
[2018-11-09] MEDS: INSULIN ASPART [NOVOLOG] 3 ML PEN SC SCH (07:55)
[2018-11-09] MEDS: DOCUSATE SODIUM 100 MG CAP PO SCH (08:03)
[2018-11-09] MEDS: CITALOPRAM 20 MG TAB PO SCH (08:04)
[2018-11-09] MEDS: GABAPENTIN 100 MG CAP PO SCH (08:04)
[2018-11-09] MEDS: PROPRANOLOL 10 MG TAB PO SCH (08:04)
[2018-11-09] MEDS: PAROXETINE 10 MG TAB PO SCH (08:05)
[2018-11-09] MEDS: NABUMETONE 500 MG TAB PO SCH (08:05)
[2018-11-09 08:15] VITALS: PULSE 59
[2018-11-09] MEDS ORDERED: DIAZ5TAB PO (10:39)
[2018-11-09] MEDS ORDERED: HYDR-4011 PO (10:39)
--- NOTE | 2018-11-09 10:40 | PN ---
Date/Time of Note Date/Time of Note DATE: 11/09/18 TIME: 10:31 Assessment/Plan Lines/Catheters IV Catheter Type (from [facility]): Peripheral IV Assessment/Plan Chief Complaint/Hosp Course POD # 2 s/p C5-6 ACDF. Doing well. Swallowing better. Currently working with PT. Home today. Subjective 24 Hr Interval Summary Patient stable. Denies fever, chills, numbness or weakness. Pain well controlled. Exam/Review of Systems Vital Signs Vitals Vital Signs Date Temp Pulse Resp B/P (MAP) Pulse Ox O2 O2 Flow FiO2 Time Delivery Rate 11/09/18 59 08:15 11/09/18 Nasal 2.0 08:05 Cannula 11/09/18 98.7 18 102/57 98 07:13 (72) Intake and Output 11/08/18 11/08/18 11/09/18 1515:00 23:00 07:00 IntakeIntake Total 1200 ml BalanceBalance 1200 ml Exam Constitutional: alert, oriented, well developed Head: normocephalic Neck: other (incision C/D/I, no swelling. 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
--- NOTE | 2018-11-09 11:37 | DS ---
Date/Time of Note Date/Time of Note DATE: 11/09/18 TIME: 11:36 Discharge Summary Admission/Discharge Info Admit Date/Time Nov 08, 2018 at 08:21 Discharge Date/Time Patient Condition: Stable Consults Dr Blanc, neurosurgeon Procedures 11/07/18 s/p C5-6 anterior cervical discectomy and fusion. s/p placement of mechanical interbody device, C5-6 interspace. s/p fixation of anterior cervical plate C5-6. Hospital Course HISTORY OF PRESENTING ILLNESS: This is a 63-year-old female with a past medical history of diabetes, hypertension, hypothyroidism, hyperlipidemia with a history of cervical stenosis and myelopathy and chronic neck pain and cervical degenerative disk disease, was admitted electively by Dr. Blanc for C5 to C6 anterior cervical diskectomy and fusion. The patient had a procedure performed on 11/07/2018, had placement of intervertebral mechanical device, fixation of anterior cervical plate. Currently, the patient was on PROTECTION CONSULTANT pump, had some odynophagia. Denied any neck pain, any tingling, numbness. Currently denies any chest pain, any shortness of breath, any abdominal pain, nausea, vomiting, diarrhea. PAST MEDICAL HISTORY: 1. Diabetes. 2. Hypertension. 3. Hyperlipidemia. 4. Hypothyroidism. 5. Depression. ALLERGIES: NONE. PAST SURGICAL HISTORY: The patient has: 1. Thyroid surgery. 2. Some foot surgery. 3. Cervical surgery. SOCIAL HISTORY: Denies any history of smoking, alcohol or any drug use. Currently lives at home with the family. A 64-year-old female with cervical stenosis and myelopathy, lumbar stenosis, lumbago and spondylolisthesis. I went over the patient's signs, symptoms, physical examination, radiographic findings with her in detail in the clinic. I discussed risks, benefits, alternatives of surgical intervention with the patient. The patient elected to proceed with surgery for C5-C6 anterior cervical diskectomy and fusion with a synthetic graft and plate. The patient states that she has declined receiving blood products. I discussed the possibility of should the patient not be able to receive blood products, though I believe the likelihood of transfusion is extremely low for a single level procedure of this nature. The patient expressed understanding and acceptance of this risk of declining blood products. The patient is to be taken to OR for surgery now. Home Meds Active Scripts Hydrocodone/Acetaminophen ([place] 5-325 Tablet) 1 Each Tablet, 1 EACH PO Q6 PRN for PAIN, #20 TAB 0 Refills Prov:ELENA BLANC MD 11/09/18 Diazepam* (Valium*) 5 Mg Tablet, 5 MG PO TID PRN for MUSCLE SPASMS, #20 TAB 1 Refill Prov:ELENA BLANC MD 11/09/18 Reported Medications Tizanidine Hcl* (Zanaflex*) 4 Mg Capsule, 4 MG PO Q6H PRN for SPASTICITY, CAP 11/07/18 Propranolol Hcl* (Propranolol Hcl*) 10 Mg Tablet, 10 MG PO BID, TAB 11/07/18 Paroxetine Hcl* (Paroxetine*) 10 Mg Tablet, 10 MG PO DAILY, TAB 11/07/18 Levothyroxine Sodium* (Levothyroxine Sodium*) 125 Mcg Tablet, 125 MCG PO BEFORE BREAKFAST, #30 TAB 11/07/18 Canagliflozin/Metformin HCl (Invokamet 150-1,000 mg Tablet) 1 Each Tablet, 1 TAB PO WITH BREAKFAST DINNE, #60 TAB 11/07/18 Hydroxyzine Pamoate* (Hydroxyzine Pamoate*) 25 Mg Capsule, 25 MG PO BID PRN for ALLERGIC REACTION, #30 CAP 11/07/18 Gabapentin* (Gabapentin*) 100 Mg Capsule, 100 MG PO TID, #90 CAP 11/07/18 Citalopram Hydrobromide* (Celexa*) 20 Mg Tablet, 30 MG PO DAILY, #30 TAB 11/07/18 Atorvastatin* (Atorvastatin*) 40 Mg Tablet, 40 MG PO HS, TAB 10/22/14 Discontinued Reported Medications Nabumetone* (Nabumetone*) 750 Mg Tablet, 750 MG PO DAILY, TAB 11/07/18 Ibuprofen* (Ibuprofen*) 600 Mg Tablet, 600 MG PO QID PRN for PAIN, TAB 02/17/17 Pentoxifylline* (Pentoxifylline*) 400 Mg Tablet.sa, 400 MG PO DAILY, TAB 02/17/17 Meloxicam* (Meloxicam*) 7.5 Mg Tablet, 7.5 MG PO DAILY, #30 TAB 02/17/17 Levothyroxine Sodium* (Levothyroxine Sodium*) 175 Mcg Tablet, 175 MCG PO BEFORE BREAKFAST, #30 TAB 02/17/17 Canagliflozin/Metformin HCl (Invokamet 150-1,000 mg Tablet) 1 Each Tablet, 1 EACH PO WITH BREAKFAST DINNE, #60 TAB 02/17/17 Discontinued Scripts Ibuprofen* (Motrin*) 600 Mg Tab, 600 MG PO Q6, #30 TAB Prov:LATRICE ADAIR PA-C 11/05/17 Ondansetron (Ondansetron Odt) 4 Mg Tab.rapdis, 4 MG PO Q6H PRN for NAUSEA AND/OR VOMITING, #10 TAB Prov:XIOMARA GUTIERREZ S. 08/16/17 Tramadol HCl (Tramadol HCl) 50 Mg Tablet, 50 MG PO Q4 PRN for PAIN, #20 TAB Prov:XIOMARA GUTIERREZ S. 08/16/17 Ciprofloxacin Hcl* (Ciprofloxacin Hcl*) 500 Mg Tablet, 500 MG PO BID for 7 Days, TAB Prov:XIOMARA GUTIERREZ S. 08/16/17 Levofloxacin* (Levaquin*) 750 Mg Tablet, 750 MG PO DAILY for 7 Days, TAB Prov:GROVER CM MD 02/17/17 Follow-up Plan dr Blanc, 1 week f/up Primary Care Provider Not On Staff Doctor Time spent on discharge: < 30 minutes Pending Labs Laboratory Tests Test 11/08/18 16:11 11/08/18 17:17 11/08/18 22:09 11/09/18 08:02 White Blood 14.9 Count 10^3/ul (4.8-10 .8) Red Blood 4.44 Count 10^6/ul (4.20-5 .40) Hemoglobin 12.0 g/dl (12.0-16.0 ) Hematocrit 38.5 % (37.0-47.0) Mean 86.7 Corpuscular fl (82.0-101.0) Volume Mean 27.0 Corpuscular pg (29.0-33.0) Hemoglobin Mean 31.2 Corpuscular g/dl (32.0-37.0 Hemoglobin Conc ) ent Red Cell 14.3 Distribution % (11.5-14.5) Width Platelet Count 288 10^3/UL (140-41 5) Mean Platelet 11.5 Volume fl (7.4-10.4) Immature 0.700 Granulocytes % % (0.001-0.429) Neutrophils % 89.7 % (39.0-77.0) Lymphocytes % 6.1 % (15.0-51.0) Monocytes % 3.4 % (0.0-11.0) Eosinophils % 0.0 % (0.0-7.0) Basophils % 0.1 % (0.0-2.0) Nucleated Red 0.0 Blood Cells % /100WBC (0.0-0. 0) Immature 0.100 Granulocytes # 10^3/ul (0.0-0. 031) Neutrophils # 13.3 10^3/ul (1.6-7. 5) Lymphocytes # 0.9 10^3/ul (0.8-2. 9) Monocytes # 0.5 10^3/ul (0.3-0. 9) Eosinophils # 0.0 10^3/ul (0.0-0. 5) Basophils # 0.0 10^3/ul (0.0-0. 1) Nucleated Red 0.0 Blood Cells # 10^3/ul (0.0-0. 0) Sodium Level 138 mmol/L (135-144 ) Potassium 4.5 Level mmol/L (3.5-5.1 ) Chloride Level 103 mmol/L (97-110) Carbon Dioxide 25 Level mmol/L (21-31) Anion Gap 10 (5-13) Blood Urea 17 mg/dl (7-20) Nitrogen Creatinine 0.62 mg/dl (0.44-1.0 0) Est Glomerular > 60 Filtrat mL/min (>60) Rate mL/min Glucose Level 162 mg/dl (70-220) Calcium Level 8.7 mg/dl (8.4-10.2 ) Bedside 146 125 104 Glucose mg/dL (70-220) mg/dL (70-220) mg/dL (70-220) DELFIN WHITNEY Nov 09, 2018 11:37
== END 2018-11-09 12:00 | disposition home or self-care (01) | DRG 472 ==
LOC: REC 09:48 → INTOOBSV 09:48 → TEL 15:10 → OBSVTOIN 11-08 08:21
PROVIDERS: ADMIT Neurological Surgery; ATTEND Neurological Surgery
PROC: 0RG10A0 Fusion of Cervical Vertebral Joint with Interbody Fusion Device, Anterior Approach, Anterior Column, Open Approach (ICD-10-PCS; 2018-11-07)
PROC: 0RT30ZZ Resection of Cervical Vertebral Disc, Open Approach (ICD-10-PCS; principal; 2018-11-07 12:00)
DX: M48.02 Spinal stenosis, cervical region (principal); M50.022 Cervical disc disorder at C5-C6 level with myelopathy; G89.29 Other chronic pain; M50.122 Cervical disc disorder at C5-C6 level with radiculopathy; E03.9 Hypothyroidism, unspecified; E78.5 Hyperlipidemia, unspecified; F32.9 Major depressive disorder, single episode, unspecified; E11.9 Type 2 diabetes mellitus without complications; I10 Essential (primary) hypertension
CPT/HCPCS: 72040; 80048; 82962; 85025; 86850; 86900; 86901; 92610; 97116; 97161; 97530; G0378; C1713; J0690; J1100; J1170; J1815; J2250; J2270; J2405; J2765; J3010; J7120; L0174